=== PATIENT | male | born 1950 | race Caucasian/White ===

== ENCOUNTER 2019-03-04 17:07 | Emergency (ER) | payer MEDICARE, MEDICAID ==
[2019-03-04 17:28] VITALS: BP 135/78
--- NOTE | 2019-03-04 17:45 | EDM.PDOC ---
<Johnny Granados - Last Filed: 03/04/19 18:16> ED HPI GENERAL MEDICAL PROBLEM - General Chief Complaint: General Stated Complaint: FELL PAIN IN JAW, LOWBACK, LEFT HIP, NECK Time Seen by Provider: 03/04/19 17:35 Source of Information: Reports: Patient History Limitations: Reports: No Limitations - History of Present Illness INITIAL COMMENTS - FREE TEXT/NARRATIVE: 68 yo male [facility] Broke a tooth off and complains of moderate neck and low back pain. Doesn't want anything for pain relief. Has walked and been to Dr. Lo's office, but they couldn't do X-rays. Had his hand between the floor and his face so spared the face. Mild shoulder pain, but this sounds chronic. Onset: Today Onset Date: 03/04/19 Onset Time: 14:30 Duration: Hour(s):, Constant Location: Reports: Face (tooth), Neck, Back (low) Quality: Reports: Ache Severity: Moderate Improves with: Reports: Rest Worsens with: Reports: Movement Context: Reports: Trauma Associated Symptoms: Reports: No Other Symptoms Treatments SUPPLY CHAIN ASSOCIATE: Reports: Other (see below) (none) Jaw Pain Score (Numeric/FACES): 8 Lower Back Pain Score (Numeric/FACES): 8 - Related Data Allergies Allergy/AdvReac Type Severity Reaction Status Date / Time venom-honey bee Allergy Anaphylactic Verified 09/12/14 00:18 [bee venom (honey bee)] Shock Home Meds: Home Meds Calcium Polycarbophil [Fiber] 1,250 mg PO BID 11/30/13 [History] Carvedilol [Coreg] 6.25 mg PO BID 11/30/13 [History] Gabapentin [Neurontin] 300 mg PO TID 11/30/13 [History] Losartan [Cozaar] 100 mg PO DAILY 11/30/13 [History] Mirtazapine [Remeron] 15 mg PO BEDTIME 11/30/13 [History] Pantoprazole Sodium [Protonix] 40 mg PO DAILY 11/30/13 [History] QUEtiapine Fumarate [Seroquel] 300 mg PO BID 11/30/13 [History] amLODIPine Besylate [Amlodipine Besylate] 10 mg PO DAILY 11/30/13 [History] hydroCHLOROthiazide [Hydrochlorothiazide] 25 mg PO DAILY PRN 11/30/13 [History] Meclizine [Antivert] 25 mg PO TID PRN 09/12/14 [History] Past Medical History Cardiovascular History: Reports: Hypertension Musculoskeletal History: Reports: Back Pain, Chronic, Fracture Neurological History: Reports: Brain Injury, Head Trauma Psychiatric History: Reports: Depression - Infectious Disease History Infectious Disease History: Reports: Chicken Pox, Measles, Mumps - Past Surgical History Musculoskeletal Surgical History: Reports: Shoulder Surgery Social & Family History - Tobacco Use Smoking Status *Q: Never Smoker - Caffeine Use Caffeine Use: Reports: Coffee - Recreational Drug Use Recreational Drug Use: No ED ROS GENERAL - Review of Systems Review Of Systems: See Below Constitutional: Reports: No Symptoms HEENT: Reports: Other (Broke off a tooth.) Respiratory: Reports: No Symptoms Cardiovascular: Reports: No Symptoms GI/Abdominal: Reports: No Symptoms : Reports: No Symptoms Musculoskeletal: Reports: Neck Pain, Back Pain (sacral) Skin: Reports: No Symptoms Neurological: Reports: No Symptoms Psychiatric: Reports: No Symptoms ED EXAM, GENERAL - Physical Exam Exam: See Below Exam Limited By: No Limitations General Appearance: Alert, WD/WN, No Apparent Distress, Obese Eye Exam: Bilateral Eye: Normal Inspection Ears: Normal External Exam, Normal Canal, Hearing Grossly Normal, Normal TMs Ear Exam: Bilateral Ear: Auricle Normal, Canal Normal, TM normal Nose: Normal Inspection, No Blood Throat/Mouth: Normal Lips, Normal Oropharynx, Normal Voice, No Airway Compromise , Other (R upper central incisor is broken off partially.) Head: Atraumatic, Normocephalic. No: Facial Swelling, Facial Tenderness, Sinus Tenderness Neck: Normal Inspection, Limited Range of Motion (slightly decreased ROM). No: Lymphadenopathy (R), Lymphadenopathy (L) Respiratory/Chest: No Respiratory Distress, Lungs Clear, Normal Breath Sounds, No Accessory Muscle Use Cardiovascular: Regular Rate, Rhythm, No Edema GI/Abdominal: Normal Bowel Sounds, Soft, Non-Tender, No Distention Back Exam: Normal Inspection, Other (Tenderness primarily over the L sacrum). No: CVA Tenderness (R), CVA Tenderness (L) Extremities: Normal Inspection, Normal Range of Motion, Non-Tender, No Pedal Edema, Other Neurological: Alert, Oriented, CN II-XII Intact, Normal Cognition, No Motor/ Sensory Deficits Psychiatric: Normal Affect, Normal Mood Skin Exam: Warm, Dry, Intact, Normal Color, No Rash Course - Vital Signs Last Recorded V/S: Last Vital Signs Temp 97.3 F 03/04/19 17:27 Pulse 72 03/04/19 17:27 Resp 18 03/04/19 17:27 BP 135/78 03/04/19 17:27 Pulse Ox 94 L 03/04/19 17:27 - Orders/Labs/Meds Orders: Active Orders 24 hr Category Date Time Status Cervical Spine 2V or 3V [CR] Stat Exams 03/04/19 17:41 Taken Lumbar Spine 2 or 3V [CR] Stat Exams 03/04/19 Taken Pelvis 1V or 2V [CR] Stat Exams 03/04/19 17:41 Taken Meds: Medications Discontinued Medications Generic Name Dose Route Start Last Admin Trade Name Nuha PRN Reason Stop Dose Admin Acetaminophen 1,000 mg 03/04/19 17:47 03/04/19 17:54 Tylenol Extra Strength PO 03/04/19 17:48 1,000 mg ONETIME ONE Administration Ibuprofen 400 mg 03/04/19 17:47 03/04/19 17:54 Motrin PO 03/04/19 17:48 400 mg ONETIME ONE Administration - Radiology Interpretation Free Text/Narrative:: Cervical spine [id number] changes only Sacral X-rays-neg lumbar spine-degen changes only. Departure - Departure Disposition: Home, Self-Care 01 Clinical Impression: Low back strain Qualifiers: Encounter type: initial encounter Qualified Code(s): S39.012A - Strain of muscle, fascia and tendon of lower back, initial encounter Fracture, tooth Qualifiers: Encounter type: initial encounter Fracture type: closed Qualified Code(s): S02.5XXA - Fracture of tooth (traumatic), initial encounter for closed fracture - Discharge Information Instructions: Lumbosacral Strain, Tooth Injuries Referrals: Drew Lo Sr, MD [Primary Care Provider] - Forms: ED Department Discharge Care Plan Goals: Continue any current medications, a regular dose of ibuprofen or naproxen will help with pain. Increase activity as tolerated and see a dentist as soon as possible. Recheck with Dr. Lo as needed. <Eddi Rosario - Last Filed: 03/04/19 19:08> Course - Re-Assessments/Exams Free Text/Narrative Re-Assessment/Exam: 03/04/19 18:34 X-ray showed no acute findings, just chronic arthritic changes. Patient feels well enough to go home. I did discuss his condition with Dr. Lo, he will recheck him in the near future. Departure - Departure Time of Disposition: 18:43
[2019-03-04] MEDS ORDERED: Ibuprofen 400 MG Tab PO ONE (17:47)
[2019-03-04] MEDS ORDERED: Acetaminophen 500 MG Tab PO ONE (17:47)
--- NOTE | 2019-03-04 19:08 | CRLCR ---
Indication: Fall with pain Technique: Two-view pelvis Comparison: None Findings: Status post bilateral hip arthroplasties. No hardware complication. No fracture or subluxation. Sacroiliac joints are normal in appearance. Degenerative changes and levoscoliosis in the lower lumbar spine. Impression: Negative. Dictated by Binta Cruz MD @ Mar 04 2019 7:04PM Signed by Dr. Binta Cruz @ Mar 04 2019 7:06PM
--- NOTE | 2019-03-04 19:12 | CRLCR ---
INDICATION: Fall with pain TECHNIQUE: Lumbar spine 3 view. COMPARISON: Three views lumbar spine FINDINGS: Bones: Mild S-shaped of the spine. No fractures or significant bone lesions. Joints: Moderate to severe multilevel degenerative disc and facet changes. Bilateral hip arthroplasties are noted. Soft tissues: Unremarkable. IMPRESSION: No acute abnormality. Moderate to severe multilevel degenerative disc and facet changes. Dictated by Binta Cruz MD @ Mar 04 2019 7:12PM Signed by Dr. Binta Cruz @ Mar 04 2019 7:12PM
--- NOTE | 2019-03-04 19:12 | CRLCR ---
INDICATION: Fall TECHNIQUE: Cervical spine 3 view. COMPARISON: None FINDINGS: The lateral films include the skull base to the C6 level. No fracture or subluxation in the visualized portions of the cervical spine. Moderate multilevel degenerative disc and facet changes. Alignment is anatomic. No prevertebral edema. Note is made of a compression fracture in the mid thoracic spine. IMPRESSION: The lateral films only include the skull base to the C6 level. The cervical thoracic junction is not included on this exam and a cervical spine CT is recommended for further evaluation. No fracture in the visualized portions of the cervical spine. Compression fracture in the midthoracic spine. If there is thoracic spine pain, recommend thoracic spine CT for further evaluation. Dictated by Binta Cruz MD @ Mar 04 2019 7:03PM Signed by Dr. Binta Cruz @ Mar 04 2019 7:10PM
== END 2019-03-04 18:43 | disposition home or self-care (01) ==
LOC: JP.ED 17:07
DX: S02.5XXA Fracture of tooth (traumatic), initial encounter for closed fracture (principal); S39.012A Strain of muscle, fascia and tendon of lower back, initial encounter; I10 Essential (primary) hypertension; F32.9 Major depressive disorder, single episode, unspecified; Z91.030 Bee allergy status; Z79.899 Other long term (current) drug therapy; W19.XXXA Unspecified fall, initial encounter
CPT/HCPCS: 72040; 72100; 72170; 99283; A9270

== ENCOUNTER 2019-10-10 21:41 | Emergency (ER) | payer MEDICARE, MEDICAID ==
--- NOTE | 2019-10-10 21:51 | EDM.PDOC ---
ED HPI GENERAL MEDICAL PROBLEM - General Chief Complaint: Chest Pain Stated Complaint: CHEST PAIN VIA NORTH Time Seen by Provider: 10/10/19 22:05 Source of Information: Reports: Patient, EMS, Old Records, RN History Limitations: Reports: No Limitations - History of Present Illness INITIAL COMMENTS - FREE TEXT/NARRATIVE: 69 yo male here with lower/central chest pain for about 5 hrs. Here via EMS. NTG en route did not improve his sx's. Fentanyl reduced, but did not eliminate it. No associated diaphoresis, subjective SOB, nausea or radiation. Has pain with palpating directly over this area. Does not recall any injury to this area. EMS gave ASA en route. Also reports abdominal bloating today without any vomiting and stools were normal earlier. Sx's began at rest today. Admits to missing his stool softeners for the past few days. Onset: Today Onset Date: 10/10/19 Onset Time: 17:00 Duration: Hour(s): (5), Constant Location: Reports: Chest Quality: Reports: Dull Severity: Moderate Improves with: Reports: Medication (Fentanyl, not NTG) Worsens with: Reports: Other (unknown) Context: Reports: Other (See HPI) Associated Symptoms: Reports: Chest Pain (over lower sternum). Denies: Cough, Diaphoresis, Fever/Chills, Nausea/Vomiting, Rash, Shortness of Breath (EMS noted mild hypoxia, patient does not report subjective SOB. ) Treatments INFORMATION STRATEGIST: Reports: Nitroglycerin, Other (see below) (Fentanyl) Chest Pain Score (Numeric/FACES): 9 - Related Data Allergies Allergy/AdvReac Type Severity Reaction Status Date / Time venom-honey bee Allergy Anaphylactic Verified 10/10/19 21:49 [bee venom (honey bee)] Shock Home Meds: Home Meds Losartan [Cozaar] 100 mg PO DAILY 11/30/13 [History] Mirtazapine [Remeron] 45 mg PO BEDTIME 11/30/13 [History] QUEtiapine Fumarate [Seroquel] 300 mg PO BEDTIME 11/30/13 [History] amLODIPine Besylate [Amlodipine Besylate] 10 mg PO DAILY 11/30/13 [History] carvediloL [Coreg] 6.25 mg PO BID 11/30/13 [History] Candesartan Cilexetil 16 mg PO DAILY 10/10/19 [History] Celecoxib [CeleBREX] 100 mg PO BID 10/10/19 [History] Dextroamphetamine/Amphetamine [Adderall 20 mg Tablet] 20 mg PO TID 10/10/19 [ History] Docusate Sodium [Dulcolax Stool Softener] 200 mg PO BID 10/10/19 [History] Fluticasone Propionate [Flonase Allergy Relief] 2 spray IH DAILY 10/10/19 [ History] Loratadine [Claritin] 10 mg PO DAILY 10/10/19 [History] Pantoprazole [ProTONIX] 40 mg PO DAILY 10/10/19 [History] busPIRone HCl [busPIRone] 30 mg PO BID 10/10/19 [History] oxyCODONE HCl [Oxycodone HCl] 10 mg PO Q8H PRN 10/10/19 [History] oxyCODONE HCl [Oxycontin] 30 mg PO Q12H PRN 10/10/19 [History] traZODone 100 mg PO BEDTIME 10/10/19 [History] Past Medical History Cardiovascular History: Reports: Hypertension Musculoskeletal History: Reports: Back Pain, Chronic, Fracture Neurological History: Reports: Brain Injury, Head Trauma Psychiatric History: Reports: Depression - Infectious Disease History Infectious Disease History: Reports: Chicken Pox, Measles, Mumps - Past Surgical History Musculoskeletal Surgical History: Reports: Shoulder Surgery Social & Family History - Caffeine Use Caffeine Use: Reports: Coffee ED ROS GENERAL - Review of Systems Review Of Systems: See Below Constitutional: Reports: No Symptoms HEENT: Reports: No Symptoms Respiratory: Reports: No Symptoms Cardiovascular: Reports: Chest Pain. Denies: Claudication, Dyspnea on Exertion , Edema, Lightheadedness, Orthopnea, Palpitations, Syncope Endocrine: Reports: No Symptoms GI/Abdominal: Reports: Distension. Denies: Black Stool, Bloody Stool, Constipation, Diarrhea, Hematemesis, Hematochezia, Melena, Nausea, Vomiting : Reports: No Symptoms Musculoskeletal: Reports: No Symptoms Skin: Reports: No Symptoms Neurological: Reports: No Symptoms Psychiatric: Reports: Anxiety. Denies: Suicidal Ideation ED EXAM, GENERAL - Physical Exam Exam: See Below Exam Limited By: No Limitations General Appearance: Alert, WD/WN, No Apparent Distress Eye Exam: Bilateral Eye: Normal Inspection Ears: Normal External Exam, Normal Canal, Hearing Grossly Normal, Normal TMs Ear Exam: Bilateral Ear: Auricle Normal, Canal Normal, TM normal Nose: Normal Inspection, No Blood Throat/Mouth: Normal Inspection, Normal Lips, Normal Oropharynx, Normal Voice, No Airway Compromise Head: Atraumatic, Normocephalic Neck: Normal Inspection Respiratory/Chest: No Respiratory Distress, Lungs Clear, Normal Breath Sounds, No Accessory Muscle Use Cardiovascular: Regular Rate, Rhythm, No Edema GI/Abdominal: Normal Bowel Sounds, Distended, Tender (mild diffuse). No: Non- Tender, No Distention, Guarding, Rigid, Rebound Back Exam: Normal Inspection. No: CVA Tenderness (R), CVA Tenderness (L) Extremities: Normal Inspection, Normal Range of Motion, Non-Tender, No Pedal Edema Neurological: Alert, Oriented, CN II-XII Intact, Normal Cognition, No Motor/ Sensory Deficits Psychiatric: Normal Affect, Normal Mood Skin Exam: Warm, Dry, Intact, Normal Color, No Rash EKG INTERPRETATION EKG Date: 10/10/19 Time: 21:40 Rhythm: NSR Rate (Beats/Min): 74 [place]: Normal P-Wave: Present QRS: Normal ST-T: Normal QT: Normal Comparison: Change From Previous EKG (PVC's now present) Course - Vital Signs Last Recorded V/S: Last Vital Signs Temp 36.3 C 10/10/19 21:58 Pulse 84 10/11/19 01:00 Resp 20 10/11/19 01:00 BP 134/66 10/11/19 01:00 Pulse Ox 90 L 10/11/19 01:00 - Orders/Labs/Meds Orders: Active Orders 24 hr Category Date Time Status Cardiac Monitoring [RC] .As Directed Care 10/10/19 21:47 Active EKG Documentation Completion [RC] ASDIRECTED Care 10/10/19 21:47 Active Enema [RC] ASDIRECTED Care 10/10/19 23:51 Active Abdomen 2V AP Flat Upright [CR] Stat Exams 10/10/19 22:17 Taken Chest 2V [CR] Stat Exams 10/10/19 22:17 Taken Sodium Chloride 0.9% [Normal Saline] 1,000 ml Med 10/11/19 01:00 Active IV ASDIRECTED EKG 12 Lead [EK] Routine Ther 10/10/19 21:47 Ordered Medication Orders Sodium Chloride (Normal Saline) 1,000 mls @ 150 mls/hr IV ASDIRECTED MARIA C Last Admin: 10/11/19 01:28 Dose: 150 mls/hr Labs: Laboratory Tests 10/10/19 10/10/19 10/10/19 Range/Units 21:48 21:57 21:57 WBC 11.3 H (4.5-11.0) K/uL RBC 4.94 (4.30-5.90) M/uL Hgb 15.3 H (12.0-15.0) g/dL Hct 44.8 (40.0-54.0) % MCV 91 (80-98) fL MCH 31 (27-31) pg MCHC 34 (32-36) % Plt Count 204 (150-400) K/uL D-Dimer, Quantitative < 100 (0.0-400.0) ng/mL Sodium (140-148) mmol/L Potassium (3.6-5.2) mmol/L Chloride (100-108) mmol/L Carbon Dioxide (21-32) mmol/L Anion Gap (5.0-14.0) mmol/L BUN (7-18) mg/dL Creatinine (0.8-1.3) mg/dL Est Cr Clr Drug Dosing mL/min Estimated GFR (MDRD) (>60) Glucose (74-106) mg/dL Calcium (8.5-10.1) mg/dL Magnesium (1.8-2.4) mg/dL Troponin I < 0.017 (0.000-0.056) ng/mL 10/10/19 10/10/19 Range/Units 21:57 21:57 WBC (4.5-11.0) K/uL RBC (4.30-5.90) M/uL Hgb (12.0-15.0) g/dL Hct (40.0-54.0) % MCV (80-98) fL MCH (27-31) pg MCHC (32-36) % Plt Count (150-400) K/uL D-Dimer, Quantitative (0.0-400.0) ng/mL Sodium 136 L (140-148) mmol/L Potassium 4.4 (3.6-5.2) mmol/L Chloride 99 L (100-108) mmol/L Carbon Dioxide 30 (21-32) mmol/L Anion Gap 11.4 (5.0-14.0) mmol/L BUN 19 H (7-18) mg/dL Creatinine 1.0 D (0.8-1.3) mg/dL Est Cr Clr Drug Dosing 70.97 mL/min Estimated GFR (MDRD) > 60 (>60) Glucose 150 H (74-106) mg/dL Calcium 8.6 (8.5-10.1) mg/dL Magnesium 2.0 (1.8-2.4) mg/dL Troponin I (0.000-0.056) ng/mL Meds: Medications Generic Name Dose Route Start Last Admin Trade Name Freq PRN Reason Stop Dose Admin Sodium Chloride 1,000 mls @ 150 mls/hr 10/11/19 01:00 10/11/19 01:28 Normal Saline IV 150 mls/hr ASDIRECTED MARIA C Administration Discontinued Medications Generic Name Dose Route Start Last Admin Trade Name Freq PRN Reason Stop Dose Admin Al Hydroxide/Mg Hydroxide 30 ml 10/10/19 23:09 10/10/19 23:24 Mag-Al Plus PO 10/10/19 23:10 30 ml ONETIME ONE Administration Al Hydroxide/Mg Hydroxide 30 ml 10/11/19 00:47 10/11/19 01:53 Mag-Al Plus PO 10/11/19 00:48 Not Given ONETIME ONE Bisacodyl 10 mg 10/10/19 22:44 10/10/19 23:01 Dulcolax RECTAL 10/10/19 22:45 10 mg ONETIME ONE Administration Sodium Chloride 85 mls @ 3.5 mls/sec 10/11/19 01:04 10/11/19 01:15 Normal Saline IV 10/11/19 01:05 3.5 mls/sec ASDIRECTED STA Administration Iopamidol 150 ml 10/11/19 01:15 10/11/19 01:15 Isovue-300 (61%) IV 150 ml . DIRECTED MARIA C Administration Ketorolac Tromethamine 30 mg 10/10/19 22:46 10/10/19 23:00 Toradol IVPUSH 10/10/19 22:47 30 mg ONETIME ONE Administration Simethicone 160 mg 10/10/19 23:09 10/10/19 23:24 Simethicone PO 10/10/19 23:10 160 mg ONETIME ONE Administration - Radiology Interpretation Free Text/Narrative:: CXR-neg Flat/upright abdominal [id number] stool, some dilated loops of bowel present. Impression: 1. Nonspecific bowel gas pattern. 2. Prominent fecal load and colonic air suggesting constipation. CT abd/pelvis with IV contrast-IMPRESSION: 1. Mild distention of the colon with air-fluid levels in the ascending and transverse colon which can be seen in a diarrheal illness. Of note, there is some slight colonic wall thickening near the level of splenic flexure with decompressed distal colon. Subjectively this is more likely due to incomplete distention of the colon although note that a colonic mass certainly can appear similar. Considering this, if not recently performed, follow-up outpatient colonoscopy suggested for further evaluation. 2. Colonic diverticulosis without gena diverticulitis. 3. Distended gallbladder although without pericholecystic inflammation. If there is pain localized to the right upper quadrant, right upper quadrant ultrasound would have improved characterization. 4. Fatty infiltration of the liver. Please note that all CT scans at this facility use dose modulation, iterative reconstruction, and/or weight-based dosing when appropriate to reduce radiation dose to as low as reasonably achievable. Dictated by Mitul Conde MD @ Oct 11 2019 1:57AM CT Results Date: 10/11/19 - Re-Assessments/Exams Free Text/Narrative Re-Assessment/Exam: 10/10/19 23:51 Partial relief if his chest pain after Toradol. No results with Dulcolax supp, will give him an enema and see if this provides relief. Free Text/Narrative Re-Assessment/Exam: 10/11/19 02:28 Passed a lot of air per rectum and a fair amount of stool. Feels a lot better, still feels like he has some stool to pass. Departure - Departure Time of Disposition: 02:40 Disposition: Home, Self-Care 01 Condition: Fair Clinical Impression: Abdominal distension (gaseous) Constipation Qualifiers: Constipation type: unspecified constipation type Qualified Code(s): K59.00 - Constipation, unspecified Instructions: Constipation, Adult, [id number] Referrals: PCP,None [Primary Care Provider] - Forms: ED Department Discharge Additional Instructions: Remember to take your stool softeners as prescribed. F/U with your provider later in the week. Return if worse. Sepsis Event Note - Focused Exam Vital Signs: Vital Signs Temp Pulse Resp BP Pulse Ox 10/11/19 01:00 84 20 134/66 90 L 10/11/19 00:01 80 12 125/83 93 L 10/10/19 23:00 70 19 132/69 95 10/10/19 22:30 67 9 L 105/68 95 10/10/19 22:00 80 10 L 110/89 94 L 10/10/19 21:58 36.3 C 77 12 116/82 93 L 10/10/19 21:45 36.3 C 77 12 116/82 93 L Date Exam was Performed: 10/11/19 Time Exam was Performed: 02:32 - My Orders Last 24 Hours: My Active Orders 10/10/19 21:47 Cardiac Monitoring [RC] .As Directed EKG Documentation Completion [RC] ASDIRECTED EKG 12 Lead [EK] Routine 10/10/19 22:17 Abdomen 2V AP Flat Upright [CR] Stat Chest 2V [CR] Stat 10/10/19 23:51 Enema [RC] ASDIRECTED 10/11/19 01:00 Sodium Chloride 0.9% [Normal Saline] 1,000 ml IV ASDIRECTED - Assessment/Plan Last 24 Hours: My Active Orders 10/10/19 21:47 Cardiac Monitoring [RC] .As Directed EKG Documentation Completion [RC] ASDIRECTED EKG 12 Lead [EK] Routine 10/10/19 22:17 Abdomen 2V AP Flat Upright [CR] Stat Chest 2V [CR] Stat 10/10/19 23:51 Enema [RC] ASDIRECTED 10/11/19 01:00 Sodium Chloride 0.9% [Normal Saline] 1,000 ml IV ASDIRECTED
[2019-10-10] MEDS ORDERED: Bisacodyl 10 MG Supp RECTAL ONE (22:44)
[2019-10-10] MEDS ORDERED: Ketorolac 30 MG/ML SDV IVPUSH ONE (22:46)
[2019-10-10] MEDS ORDERED: Simethicone 80 MG Tab.Chew PO ONE (23:09)
[2019-10-10] MEDS ORDERED: Aluminum Hydroxide/Magnesium Hydroxide/Simethicone Susp 30 ML Cup PO ONE (23:09)
[2019-10-11] MEDS ORDERED: Aluminum Hydroxide/Magnesium Hydroxide/Simethicone Susp 30 ML Cup PO ONE (00:47)
[2019-10-11] MEDS ORDERED: Sodium Chloride 0.9% 1,000 ML IV SCH (01:00)
[2019-10-11] MEDS ORDERED: Iopamidol 612 MG/ML 150 ML Bottle IV SCH (01:15)
[2019-10-11 01:51] VITALS: PULSE 84
--- NOTE | 2019-10-11 02:09 | CRLCT ---
INDICATION: Pain and bloating TECHNIQUE: Axial images were obtained from the diaphragm to the pubic symphysis. Reformats were obtained in the coronal and sagittal plane. IV Contrast: 150 cc Isovue-300 Oral Contrast: None COMPARISON: None. FINDINGS: Lower chest: Indeterminate 3 millimeter subpleural nodule right lower lobe. Liver: Diffusely decreased density of the liver consistent fatty infiltration with more focal fat adjacent to the falciform ligament. Focal sparing adjacent to the gallbladder fossa. Gallbladder and bile ducts: Prominent distention of the gallbladder although without gallbladder wall thickening or pericholecystic inflammation. Spleen: Unremarkable. Normal in size without mass. Pancreas: Unremarkable. No mass or inflammation. Adrenal glands: Unremarkable. No nodules. Kidneys: Unremarkable. No masses, stones, or hydronephrosis. Vasculature: Tortuous distal thoracic aorta. No abdominal aortic aneurysm. GI tract: Stomach is decompressed. No dilated loops of small bowel. No colonic wall thickening, however mild distention of the colon with air-fluid levels in the ascending and transverse colon. Slight thickening of the colonic wall with more decompressed descending and sigmoid colon (see coronal series 3, image 47). Sigmoid colonic diverticulosis without localizing inflammation. Pelvis: Bladder and prostate are unremarkable. Bones: Degenerative disc disease lumbar spine with bilateral hip replacements. IMPRESSION: 1. Mild distention of the colon with air-fluid levels in the ascending and transverse colon which can be seen in a diarrheal illness. Of note, there is some slight colonic wall thickening near the level of splenic flexure with decompressed distal colon. Subjectively this is more likely due to incomplete distention of the colon although note that a colonic mass certainly can appear similar. Considering this, if not recently performed, follow-up outpatient colonoscopy suggested for further evaluation. 2. Colonic diverticulosis without gena diverticulitis. 3. Distended gallbladder although without pericholecystic inflammation. If there is pain localized to the right upper quadrant, right upper quadrant ultrasound would have improved characterization. 4. Fatty infiltration of the liver. Please note that all CT scans at this facility use dose modulation, iterative reconstruction, and/or weight-based dosing when appropriate to reduce radiation dose to as low as reasonably achievable. Dictated by Mitul Conde MD @ Oct 11 2019 1:57AM Signed by Dr. Mitul Conde @ Oct 11 2019 2:07AM
[2019-10-11 02:40] VITALS: BP 133/79
--- NOTE | 2019-10-11 07:02 | CRLCR ---
Final Report: Indication: Pain, bloating Technique: Upright and supine views of the abdomen Comparison: Two-view abdominal radiographs from 09/24/2007 Findings: No abnormally distended air-filled small bowel loops are appreciated. No bowel air-fluid levels are seen on upright view. There is mild air distention of the colon. There is also prominent colonic fecal material. There is no free air under the diaphragm. The included lung bases are clear. Degenerative changes are noted in the lumbar spine with mild S-shaped curvature. Impression: 1. Nonspecific bowel gas pattern. 2. Prominent fecal load and colonic air suggesting constipation. Dictated by Kelsy Baker MD @ Oct 11 2019 1:16AM (Electronic Signature) JOSIANE
--- NOTE | 2019-10-11 11:10 | CR ---
CHEST: 2 view CLINICAL HISTORY:Chest pain, SOB COMPARISON:2015 FINDINGS: The heart size, pulmonary vascularity and hilar structures are normal. No infiltrate effusion or pneumothorax is seen. There are atherosclerotic changes in the aorta. IMPRESSION: No acute cardiopulmonary process.
== END 2019-10-11 03:11 | disposition home or self-care (01) ==
LOC: JP.ED 21:41
DX: K59.00 Constipation, unspecified (principal); I10 Essential (primary) hypertension; F32.9 Major depressive disorder, single episode, unspecified; Z79.899 Other long term (current) drug therapy; Z91.030 Bee allergy status
CPT/HCPCS: 36415; 71046; 74019; 74177; 80048; 83735; 84484; 85027; 85379; 93005; 93010; 96361; 96374; 99283; 99285; A9270; J1885; J7030; J7050; Q9967

== ENCOUNTER 2021-05-27 18:23 | Emergency (ER) | payer MEDICARE, MEDICAID ==
[2021-05-27 19:36] VITALS: BP 127/102; PULSE 86
--- NOTE | 2021-05-27 19:44 | EDM.PDOC ---
ED HPI GENERAL MEDICAL PROBLEM - General Chief Complaint: ENT Problem Stated Complaint: TOOTH ABCESS Time Seen by Provider: 05/27/21 19:43 Source of Information: Reports: Patient, RN Notes Reviewed History Limitations: Reports: No Limitations - History of Present Illness INITIAL COMMENTS - FREE TEXT/NARRATIVE: Jermaine presents today for complaints of worsening left jaw/face pain and concerns for dental abscess. He states he has been working with Dr. Lo and has taken amoxicillin in the past for the abscess. He states he took one amoxicillin 500mg pill this morning. Jermaine reports he has been nauseated today and not able to take anything for pain. He denies fever, chills, vomiting, change in bowel/bladder or other concerns. Left Oral/Mouth Pain Score (Numeric/FACES): 10 - Related Data Allergies Allergy/AdvReac Type Severity Reaction Status Date / Time venom-honey bee Allergy Severe Anaphylactic Verified 05/27/21 19:27 [bee venom (honey bee)] Shock Home Meds: Home Meds Losartan [Cozaar] 50 mg PO DAILY 11/30/13 [History] Mirtazapine [Remeron] 30 mg PO BEDTIME 11/30/13 [History] QUEtiapine Fumarate [Seroquel] 300 mg PO BEDTIME 11/30/13 [History] amLODIPine Besylate [Amlodipine Besylate] 10 mg PO DAILY 11/30/13 [History] carvediloL [Coreg] 12.5 mg PO BID 11/30/13 [History] Candesartan Cilexetil 16 mg PO DAILY 10/10/19 [History] Celecoxib [CeleBREX] 100 mg PO BID 10/10/19 [History] Docusate Sodium [Dulcolax Stool Softener] 200 mg PO BID PRN 10/10/19 [History] Fluticasone Propionate [Flonase Allergy Relief] 2 spray IH DAILY 10/10/19 [History] Loratadine [Claritin] 10 mg PO DAILY 10/10/19 [History] Pantoprazole [ProTONIX] 40 mg PO DAILY 10/10/19 [History] oxyCODONE HCl [Oxycodone HCl] 10 mg PO Q8H PRN 10/10/19 [History] oxyCODONE HCl [Oxycontin] 30 mg PO Q12H PRN 10/10/19 [History] traZODone 100 mg PO BEDTIME PRN 10/10/19 [History] Cholecalciferol (Vitamin D3) [Vitamin D3] 2,000 unit PO ASDIRECTED 12/01/20 [History] Cyanocobalamin (Vitamin B-12) [Cyanocobalamin Injection] 1,000 mcg IJ ASDIRECTED 12/01/20 [History] Dextroamphetamine/Amphetamine [Adderall 20 mg Tablet] 20 mg PO TID 12/01/20 [History] Nystatin 100,000 unit PO ASDIRECTED 12/01/20 [History] busPIRone HCl [busPIRone] 30 mg PO BID 12/01/20 [History] hydrOXYzine HCL [Hydroxyzine HCl] 1 tab PO Q6HR PRN 12/01/20 [History] Past Medical History HEENT History: Reports: Allergic Rhinitis, Impaired Vision Cardiovascular History: Reports: Hypertension Gastrointestinal History: Reports: Chronic Constipation Genitourinary History: Reports: Other (See Below) Other Genitourinary History: acute kidney or bladder injury from a fall Musculoskeletal History: Reports: Back Pain, Chronic, Fracture Neurological History: Reports: Brain Injury, Head Trauma Psychiatric History: Reports: Depression - Infectious Disease History Infectious Disease History: Reports: Chicken Pox, Measles, Mumps - Past Surgical History HEENT Surgical History: Reports: Naso-Sinus Surgery Musculoskeletal Surgical History: Reports: Shoulder Surgery Social & Family History - Family History Family Medical History: No Pertinent Family History - Tobacco Use Tobacco Use Status *Q: Never Tobacco User - Caffeine Use Caffeine Use: Reports: Coffee - Recreational Drug Use Recreational Drug Use: No ED ROS ENT - Review of Systems Review Of Systems: See Below Constitutional: Reports: No Symptoms HEENT: Reports: Dental Pain (to left lower ), Ear Pain (left), Other (edema to left face). Denies: Rhinitis, Sinus Problem, Throat Pain, Throat Swelling Respiratory: Reports: No Symptoms Cardiovascular: Reports: No Symptoms Endocrine: Reports: No Symptoms GI/Abdominal: Reports: Nausea. Denies: Abdominal Pain, Constipation, Diarrhea, Decreased Appetite, Difficulty Swallowing, Vomiting : Reports: No Symptoms Musculoskeletal: Reports: No Symptoms Skin: Reports: Other (edema to left face). Denies: Mottled, Pallor, Bruising, Pruritis, Rash, Erythema Neurological: Reports: No Symptoms Psychiatric: Reports: No Symptoms Hematologic/Lymphatic: Reports: No Symptoms Immunologic: Reports: No Symptoms ED EXAM, ENT - Physical Exam Exam: See Below Exam Limited By: No Limitations General Appearance: Alert, WD/WN, Mild Distress Eye Exam: Bilateral Eye: Normal Inspection Ears: Normal External Exam, Normal Canal, Hearing Grossly Normal, Normal TMs. No: TM Erythema, TM Blood, TM Fluid Nose: Normal Inspection, Normal Mucousa, No Blood Mouth/Throat: Normal Lips, Dental Pain (left lower #25,24,23,22), Dental Tenderness, Gum Swelling, Other (Dental caries noted, multiple teeth ground down). No: Dental Trauma, Drooling, Dry Mucous Membrane, Lip Swelling, Lip Ulcers, Muffled Voice, Oral Ulcers, Peritonsillar Mass, Pharyngeal Erythema, Throat Pain, Throat Swelling, Tongue Swelling, Tonsillar Erythema, Tonsillar Exudates, Tonsillar Swelling, Uvular Deviation, Uvular Edema Head: Atraumatic, Facial Swelling, Facial Tenderness (left facial from left cheek to chin, submandibular). No: Scalp Swelling, Scalp Abrasions, Scalp Ecchymosis, Scalp Hematoma, Scalp Tenderness, Facial Ecchymosis, Facial Lacerations Neck: Full Range of Motion, Lymphadenopathy (L). No: Lymphadenopathy (R), Tender Lateral, Tender Midline, Thyromegaly Respiratory/Chest: No Respiratory Distress, Lungs Clear, Normal Breath Sounds, No Accessory Muscle Use, Chest Non-Tender. No: Crackles, Rales, Rhonchi, Wheezing, Stridor, Accessory Muscle Use, Retractions, Splinting Cardiovascular: Normal Peripheral Pulses, Regular Rate, Rhythm, No Edema, No Gallop, No Murmur, No Rub GI/Abdominal: Normal Bowel Sounds, Soft, Non-Tender, No Distention (Male) Exam: Deferred Rectal (Males) Exam: Deferred Back: Normal Inspection, Full Range of Motion Extremities: Normal Inspection, Normal Range of Motion, Non-Tender, No Pedal Edema, Normal Capillary Refill Neurological: Alert, Oriented, CN II-XII Intact, Normal Cognition, Normal Gait, No Motor/Sensory Deficits Psychiatric: Normal Affect, Normal Mood Skin: Warm, Dry, Intact, Normal Color, No Rash. No: Erythema, Increased Warmth, Rash Lymphatic: No Adenopathy Course - Vital Signs Last Recorded V/S: Last Vital Signs Temp 36.7 C 05/27/21 19:35 Pulse 86 05/27/21 19:35 Resp 18 05/27/21 19:35 BP 127/102 H 05/27/21 19:35 Pulse Ox 95 05/27/21 19:35 - Orders/Labs/Meds Labs: Laboratory Tests 05/27/21 05/27/21 Range/Units 20:10 20:10 WBC 10.3 (4.5-11.0) K/uL RBC 4.91 (4.30-5.90) M/uL Hgb 15.9 H (12.0-15.0) g/dL Hct 44.8 (40.0-54.0) % MCV 91 (80-98) fL MCH 32 H (27-31) pg MCHC 36 (32-36) % Plt Count 247 (150-400) K/uL Neut % (Auto) 54.9 (36-66) % Lymph % (Auto) 31.6 (24-44) % Mckinley % (Auto) 10.9 H (2-6) % Eos % (Auto) 2.4 (2-4) % Baso % (Auto) 0.2 (0-1) % Sodium 140 (140-148) mmol/L Potassium 4.7 (3.6-5.2) mmol/L Chloride 103 (100-108) mmol/L Carbon Dioxide 33 H (21-32) mmol/L Anion Gap 8.7 (5.0-14.0) mmol/L BUN 14 (7-18) mg/dL Creatinine 0.9 (0.8-1.3) mg/dL Est Cr Clr Drug Dosing 81.43 mL/min Estimated GFR (MDRD) > 60 (>60) Glucose 106 (74-106) mg/dL Calcium 8.6 (8.5-10.1) mg/dL No acute findings noted with lab work. Jermaine can take clindamycin PO, ondansetron as needed and follow up with primary. Meds: Medications Discontinued Medications Generic Name Dose Route Start Last Admin Trade Name Freq PRN Reason Stop Dose Admin Acetaminophen 1,000 mg 05/27/21 20:20 05/27/21 20:26 Acetaminophen 500 Mg Tab PO 05/27/21 20:21 1,000 mg ONETIME ONE Administration Ketorolac Tromethamine 30 mg 05/27/21 19:56 05/27/21 20:01 Ketorolac 30 Mg/Ml Sdv IM 05/27/21 19:57 30 mg ONETIME ONE Administration Ondansetron HCl 4 mg 05/27/21 19:56 05/27/21 20:01 Ondansetron 4 Mg Tab.Dis PO 05/27/21 19:57 4 mg ONETIME ONE Administration - Re-Assessments/Exams Free Text/Narrative Re-Assessment/Exam: 05/27/21 20:40 Patient reports he is feeling a little better, pain now 4-5/10. Discussed lab work with patient. He is in agreement with plan. Departure - Departure Time of Disposition: 20:33 Disposition: Home, Self-Care 01 Condition: Good Clinical Impression: Dental abscess - Discharge Information Instructions: Dental Abscess, [id number] Referrals: Drew Lo Sr, MD [Primary Care Provider] - Forms: ED Department Discharge Additional Instructions: You have been evaluated and treated for left dental abscess. Normal CBC, BMP without acute signs of severe infection. Take clindamycin 300mg by mouth every 6 hours for infection. Take tylenol 1000mg by mouth for pain three times a day as needed. Take ondansetron 4mg ODT by mouth every 8 hours as needed for nausea. Take current pain medications as prescribed. Follow with primary in 2 to 7 days for recheck. Return as needed for issues or concerns. Sepsis Event Note (ED) - Evaluation Sepsis Screening Result: No Definite Risk - Focused Exam Vital Signs: Vital Signs Temp Pulse Resp BP Pulse Ox 05/27/21 19:35 36.7 C 86 18 127/102 H 95 - Assessment/Plan Assessment:: Dental abscess Plan: Patient evaluated and treated for left dental abscess. Normal CBC, BMP without acute signs of severe infection. Take clindamycin 300mg by mouth every 6 hours for infection. Take tylenol 1000mg by mouth for pain three times a day as needed. Take ondansetron 4mg ODT by mouth every 8 hours as needed for nausea. Take current pain medications as prescribed. Follow with primary in 2 to 7 days for recheck. Return as needed for issues or concerns.
[2021-05-27] MEDS ORDERED: Ketorolac 30 MG/ML SDV IM ONE (19:56)
[2021-05-27] MEDS ORDERED: Ondansetron 4 MG Tab.DIS PO ONE (19:56)
[2021-05-27] MEDS ORDERED: Acetaminophen 500 MG Tab PO ONE (20:20)
== END 2021-05-27 21:03 | disposition home or self-care (01) ==
LOC: JP.ED 18:23
DX: K04.7 Periapical abscess without sinus (principal); K02.9 Dental caries, unspecified; I10 Essential (primary) hypertension; Z91.030 Bee allergy status; Z79.899 Other long term (current) drug therapy
CPT/HCPCS: 36415; 80048; 85025; 96372; 99283; A9270; J1885

== ENCOUNTER 2024-04-05 16:39 | Emergency (ER) | payer OTHER, MEDICARE ==
[2024-04-05 16:50] VITALS: BP 123/77; PULSE 71
== END 2024-04-05 19:24 | disposition home or self-care (01) ==
LOC: JP.ED 16:39
DX: S60.211A Contusion of right wrist, initial encounter (principal); S60.212A Contusion of left wrist, initial encounter; V89.2XXA Person injured in unspecified motor-vehicle accident, traffic, initial encounter
CPT/HCPCS: 70450; 72125; 731102650; 73110-50; 76377; 99284